=== PATIENT | male | born 1995 | race Caucasian/White ===

== ENCOUNTER 2024-04-02 19:15 | Emergency (ER) | payer MEDICAID ==
[~2024-04-02] VITALS: Ht 172.7 cm; Wt 77.0 kg
[2024-04-02 19:16] VITALS: BP 132/82; PULSE 67; RESP 16; TEMP 98.7; O2SAT 100
[2024-04-02] MEDS ORDERED: MAGNESIUM/ALUMINUM HYDROXIDE/SIMETHICONE 30ML UDC PO STA (19:30)
[2024-04-02] MEDS ORDERED: PANTOPRAZOLE 40MG DR TABLET PO ONE (19:30)
[2024-04-02] MEDS ORDERED: ACETAMINOPHEN 325MG TABLET PO STA (19:30)
[2024-04-02] MEDS ORDERED: SODIUM CHLORIDE 0.9% 1,000 ML IV ONE (19:30)
[2024-04-02 20:53] LABS: BASOPHILS % 0.2 % (0.0-2.0); EOSINOPHILS % 0.1 % (0.0-5.0); HEMOGLOBIN. 14.1 g/dL (14.0-18.0); LYMPHOCYTES % 11.7 % (20.0-50.0); MEAN CORPUSCULAR HEMOGLOBIN 30.3 pg (28.0-32.0); MEAN CORPUSCULAR HGB CONC 34.3 g/dL (31.0-37.0); MEAN CORPUSCULAR VOLUME 88.5 fL (80.0-94.0); MEAN PLATELET VOLUME 9.6 fl (7.4-10.4); MONOCYTES % 4.8 % (2.0-8.0); NEUTROPHILS % 83.2 % (40.0-76.0); PLATELET 183 x1000/uL (130-400); RED BLOOD CELL COUNT 4.63 mill/uL (4.7-6.1); RED CELL DISTRIBUTION WIDTH 13.3 % (11.6-14.6); WHITE BLOOD COUNT 4.9 x1000/uL (4.5-11.0)
[2024-04-02 21:01] LABS: CARBON DIOXIDE 28 mEq/L (21-32); CHLORIDE 106 mEq/L (98-107); POTASSIUM 3.9 mEq/L (3.5-5.1); SODIUM 140 mEq/L (136-145)
[2024-04-02 21:02] LABS: CALCIUM 9.7 mg/dL (8.7-10.4)
[2024-04-02 21:06] LABS: CREATININE 0.7 mg/dL (0.6-1.3)
[2024-04-02 21:07] LABS: GLUCOSE 116 mg/dL (70-105); UREA NITROGEN BLOOD 6 mg/dL (9-23)
[2024-04-02] MEDS ORDERED: PANT40SU MT (22:09)
[2024-04-02] MEDS ORDERED: CIPR-263 MT (22:09)
[2024-04-02] MEDS ORDERED: TOPUD MT (22:09)
[2024-04-02] MEDS ORDERED: PROM25TA13 MT (22:09)
== END 2024-04-02 22:10 | disposition home or self-care (01) ==
LOC: ER 19:15
DX: R11.2 Nausea with vomiting, unspecified (principal); R19.7 Diarrhea, unspecified; Z98.890 Other specified postprocedural states
CPT/HCPCS: 99283; 80048; 85025; 36415; J7030